=== PATIENT | male | born 1935 | race Caucasian/White ===

== ENCOUNTER 2017-07-24 13:46 | Emergency (ER) | payer MEDICARE, BC ==
[~2017-07-24] VITALS: Ht 177.8 cm; Wt 70.3 kg
[2017-07-24 14:50] VITALS: BP 98/56
--- NOTE | 2017-07-24 15:48 | NUR ---
WOUND CARE PROVIDED. PT D/C HOME IN STABLE CONDITION.
== END 2017-07-24 15:49 | disposition home or self-care (01) ==
LOC: ER 13:49
DX: S51.811A Laceration without foreign body of right forearm, initial encounter (principal); I48.91 Unspecified atrial fibrillation; W22.8XXA Striking against or struck by other objects, initial encounter; Y92.89 Other specified places as the place of occurrence of the external cause; Y93.89 Activity, other specified; Y99.8 Other external cause status
CPT/HCPCS: A4606; A6402; Z7610

== ENCOUNTER 2019-04-25 08:21 | Emergency (ER) | payer MEDICARE, BC ==
[~2019-04-25] VITALS: Ht 172.7 cm; Wt 73.5 kg
[2019-04-25 08:25] VITALS: BP 143/89
--- NOTE | 2019-04-25 11:02 | NUR ---
THA ON-CALL PAGEDWILLIAM
--- NOTE | 2019-04-25 11:49 | NUR ---
THA ON-CALL,WILLIAM CLEARY
== END 2019-04-25 12:29 | disposition home or self-care (01) ==
LOC: ER 08:21
DX: S32.89XA Fracture of other parts of pelvis, initial encounter for closed fracture (principal); I48.91 Unspecified atrial fibrillation; Z95.5 Presence of coronary angioplasty implant and graft; Z98.890 Other specified postprocedural states; W18.39XA Other fall on same level, initial encounter; Y93.89 Activity, other specified; Y92.89 Other specified places as the place of occurrence of the external cause; Y99.8 Other external cause status
CPT/HCPCS: 72192-TC

== ENCOUNTER 2021-07-03 02:52 | Emergency (ER) | payer MEDICARE, BC ==
[~2021-07-03] VITALS: Ht 172.7 cm; Wt 69.4 kg
--- NOTE | 2021-07-03 03:36 | NUR ---
pt bib , after ground level fall. pt hard of hearing. aao x4. no resp distress. pt verbalized he lost footing and hit his arm/elbow on concrete. pt c/o he landed on his wrist and ribs as well. pt also says he is up to date on all vaccines, PNA, (flu during the season), COVID moderna x2 and claims he got TDAP as well. denies allergies. pt hooked up to monitor, vss. waiting for
--- NOTE | 2021-07-03 03:43 | NUR ---
EMT at bedside, pt has open wound on area of impact, bleeding wrapped with gauze Addendum: 07/03/21 at 0344 by ABBY pt dolores franco
[2021-07-03] MEDS ORDERED: HYDROCODONE/APAP 5/325MG TABLET ONE (03:59)
[2021-07-03] MEDS ORDERED: HYDROCODONE/APAP 5/325MG TABLET PO ONE (04:00)
--- NOTE | 2021-07-03 04:05 | NUR ---
pt refused Piseco for pain at this time. will hold the medication for now. MD smart
--- NOTE | 2021-07-03 05:33 | NUR ---
paged dr ria roman per Dr samuels's order
--- NOTE | 2021-07-03 05:42 | NUR ---
PAGED [employer] AT [facility].
[2021-07-03] MEDS ORDERED: GELATIN SPONGE,ABSORBABLE 1 SPONGE SPONGE TP ONE ×2 (05:58→06:00)
--- NOTE | 2021-07-03 05:59 | NUR ---
pt denies need for norco, refused medication upon adminstration
--- NOTE | 2021-07-03 06:51 | NUR ---
EMT AT BED SIDE TO PLACE ULNAR GUTTER
--- NOTE | 2021-07-03 07:20 | NUR ---
PT REFUSED ULNAR GUTTER SPLINT, DESPITE EDUCATION IMPORTANCE, RISK AND BENEFITS X2. MD AWARE. PT AGREED TO WRIST BRACE.
--- NOTE | 2021-07-03 07:21 | NUR ---
Note johana in EDM - 07/03/21 at 0732 by ROALCJONEL PT REFUSED ULNAR GUTTER SPLINT, DESPITE EDUCATION IMPORTANCE, RISK AND BENEFITS X2. AWARE. PT AGREED TO WRIST BRACE.
--- NOTE | 2021-07-03 07:32 | NUR ---
Patient discharged to home in stable condition. Written and verbal after care instructions given. Patient verbalizes understanding of instruction. copy of xray given
[2021-07-03 07:33] VITALS: BP 125/80
== END 2021-07-03 07:34 | disposition home or self-care (01) ==
LOC: ER 02:56
DX: S20.211A Contusion of right front wall of thorax, initial encounter (principal); S50.01XA Contusion of right elbow, initial encounter; M19.042 Primary osteoarthritis, left hand; S60.211A Contusion of right wrist, initial encounter; I48.91 Unspecified atrial fibrillation; Z95.5 Presence of coronary angioplasty implant and graft; W10.8XXA Fall (on) (from) other stairs and steps, initial encounter; Y93.89 Activity, other specified; Y92.89 Other specified places as the place of occurrence of the external cause; Y99.8 Other external cause status
CPT/HCPCS: 71100; 73080; 73110; 99284; A6403